=== PATIENT | female | born 1985 | race African-American/Black ===

== ENCOUNTER 2018-05-13 00:43 | Outpatient (CLI) ==
[2018-05-13 17:58] VITALS: BMI 27.7
== END 2018-05-13 01:00 | disposition short-term general hospital (02) ==
LOC: AMBL 00:43
PROVIDERS: ATTEND Internal Medicine Geriatric Medicine
DX: R07.9 Chest pain, unspecified (principal); R06.02 Shortness of breath; R60.9 Edema, unspecified; M79.605 Pain in left leg; M79.604 Pain in right leg; Z33.1 Pregnant state, incidental

== ENCOUNTER 2018-05-13 17:53 | Emergency (ER) ==
[2018-05-13 17:58] VITALS: TEMP 99.5; BMI 27.7
--- NOTE | 2018-05-13 18:37 | ED.PDOC ---
General <CHANTELLORENZOBRENDA - Last Filed: 05/13/18 22:12> Stated Complaint: CHEST PAIN Time Seen by Physician: 18:00 (SEEN WITH LORI AT ALL TIMES STATED SHE WAS SEEN AT HOSPITAL IN [facility] SHE DOES NOT RECALL THE NAME BUT DID PROVIDE A NUMBER ) Mode of Arrival: Walk-In Information Source: Patient Referred to ED by: Other (PT REFUSED HER DAUGHTER TO BE ACCOMPANIED BY SECURITY TO PROVIDE HER EARLIER D/C PAPERS FROM EARLIER HOSPITAL VISIT) Seen Within Last 72 Hours for Same Complaint By: ED (PT STATED SHE WAS SEEN IN A [facility] BUT WHEN IS ASKED HER TO PROVIDE DOCUMENTS PT STATED IT IS IN HER CAR AND DIFFICULT TO OBTAIN.) Nursing and Triage Documentation Reviewed and Agree: Yes (PT DID PROVIDE A PHONE NUMBER WITH REGARDS TO PRIOR OBTAINED CARE TODAY) Does patient meet sepsis criteria?: No (10 WEEKS ) System Inflammatory Response Syndrome: Not Applicable <SOLOMON CRAIG - Last Filed: 05/18/18 07:17> ED Provider: Dr. SOLOMON CRAIG Chief Complaint: Chest Pain Sepsis Protocol: For patient's 13 years and over: Temp is 96.8 and below OR 101 and greater Pulse >90 BPM Resp >20/minute Acutely Altered Mental Status Are patient's symptoms suggestive of a new infection, such as: -Pneumonia -Skin, Soft Tissue -Endocarditis -UTI -Bone, Joint Infection -Implantable Device -Acute Abdominal Infection -Wound Infection -Meningitis -Blood Stream Catheter Infection -Unknown Cardiovascular Complaint Exam - Chest Pain Complaint/Exam Onset: Gradual Duration: TODAY Symptoms Are: Resolved Timing: Intermittent Length of Chest Pain Episodes: ALL DAY Initial Severity: Mild Current Severity: Mild Location: Reports: Discrete Pain Radiates: Reports: None Character: Reports: Dull Aggravating: Reports: None Alleviating: Reports: None Associated Signs and Symptoms: Denies: Diaphoresis, Nausea, Vomiting, Fever, Palpitations, Cough, Hemoptysis, Back pain, Abdominal pain, Dizziness, Short of air, Calf pain, Calf swelling Related History: Reports: Similar episode Related Surgical History: Reports: None History of Healthcare-Acquired Pneumonia: Reports: No AMI/ACS Risk Factors: Reports: None <SOLOMON CRAIG - Last Filed: 05/18/18 07:17> Review of Systems - Review Of Systems Constitutional: Reports: No symptoms Eyes: Reports: No symptoms Ears, Nose, Mouth, Throat: Reports: No symptoms Respiratory: Reports: No symptoms Cardiac: Reports: Chest pain GI: Reports: No symptoms : Reports: No symptoms Musculoskeletal: Reports: Other (BILATERAL EDEMA LOWER LEGS RIGHT MORE THAN LEFT ) Skin: Reports: No symptoms Neurological: Reports: No symptoms Endocrine: Reports: No symptoms Hematologic/Lymphatic: Reports: No symptoms All Other Systems: Reviewed and Negative <SOLOMON CRAIG Filed: 05/18/18 07:17> Past Medical History - Past Medical History Previously Healthy: Yes Endocrine: Reports: None Cardiovascular: Reports: Other (AORTIC ROOT SURGERY) Respiratory: Reports: None Hematological: Reports: None Gastrointestinal: Reports: None Genitourinary: Reports: None Neuro/Psych: Reports: None Musculoskeletal: Reports: None Cancer: Reports: None Last Menstrual Period: MARCH - Surgical History General Surgical History: Reports: None - Family History Family History: Reports: None - Social History Smoking Status: Never smoker Hx Substance Use: No Alcohol Screening: None - Immunizations Tetanus Shot up to Date: No <SOLOMON CRAIG Filed: 05/18/18 07:17> Physical Exam - Physical Exam Appearance: Well-appearing, No pain distress, Well-nourished Eyes: ANNETTE, EOMI, Conjunctiva clear ENT: Ears normal, Nose normal, Oropharynx normal Respiratory: Airway patent, Breath sounds clear, Breath sounds equal, Respirations nonlabored Cardiovascular: RRR, Pulses normal, No rub, No murmur GI/: Soft, Nontender, No masses, Bowel sounds normal, No Organomegaly Musculoskeletal: Normal strength, ROM intact, No edema, No calf tenderness Skin: Warm, Dry, Normal color Neurological: Sensation intact, Motor intact, Reflexes intact, Cranial nerves intact, Alert, Oriented Psychiatric: Affect appropriate, Mood appropriate <SOLOMON CRAIG Filed: 05/18/18 07:17> Physician Notification - Case Discussed Physician Notified: dr cunningham(ob) and dr bateman([facility]) both graciosly accepted Time of Notification: 22:13 <BRENDA WRIGHT Last Filed: 05/13/18 22:12> - Case Discussed Physician Notified: CHANTEL Time of Notification: 19:00 <SOLOMON CRAIG Filed: 05/18/18 07:17> Critical Care Note - Critical Care Note Total Time (mins): 0 <SOLOMON CRAIG Filed: 05/18/18 07:17> Course - Course Hematology/Chemistry: 05/13/18 18:45 05/13/18 18:45 <BRENDA WRIGHT - Last Filed: 05/13/18 22:12> - Course Hematology/Chemistry: 05/13/18 18:45 05/13/18 18:45 <SOLOMON CRAIG - Last Filed: 05/18/18 07:17> - Course Orders, Labs, Meds: Lab Review 05/13/18 05/13/18 05/13/18 18:40 18:45 18:45 WBC 7.20 RBC 4.21 Hgb 11.5 L Hct 35.1 L MCV 83.4 MCH 27.3 MCHC 32.8 RDW Coeff of Saad 14.8 Plt Count 313 Immature Gran % (Auto) 0.4 Neut % (Auto) 58.0 Lymph % (Auto) 29.6 [place] % (Auto) 10.1 H Eos % (Auto) 1.3 Baso % (Auto) 0.6 Immature Gran # (Auto) 0.0 Neut # (Auto) 4.2 Lymph # (Auto) 2.1 [place] # (Auto) 0.7 Eos # (Auto) 0.1 Baso # (Auto) 0.0 PT 10.6 INR 1.06 APTT 29.0 D-Dimer (Manual) Sodium Potassium Chloride Carbon Dioxide Anion Gap BUN Creatinine Estimated GFR (MDRD) BUN/Creatinine Ratio Glucose Calcium Total Bilirubin AST ALT Alkaline Phosphatase Total Creatine Kinase Troponin I Total Protein Albumin Globulin Albumin/Globulin Ratio Amylase Lipase TSH Free T4 HCG, Quant Urine Color Dark Urine Clarity Slightly Urine pH 6.5 Ur Specific [place] 1.025 Urine Protein Negative Urine Glucose (UA) Negative Urine Ketones 1+ Urine Blood Negative Urine Nitrite Negative Urine Bilirubin Negative Urine Urobilinogen 4.0 Ur Leukocyte Esterase Negative Urine Test Urine Opiates Screen Ur Oxycodone Screen Urine Methadone Screen Ur Propoxyphene Screen Ur Barbiturates Screen U Tricyclic Antidepress Ur Phencyclidine Scrn Ur Amphetamine Screen U Methamphetamines Scrn U Benzodiazepines Scrn Urine Cocaine Screen U Cannabinoids Screen 05/13/18 05/13/18 05/13/18 18:45 18:45 18:48 WBC RBC Hgb Hct MCV MCH MCHC RDW Coeff of Saad Plt Count Immature Gran % (Auto) Neut % (Auto) Lymph % (Auto) [place] % (Auto) Eos % (Auto) Baso % (Auto) Immature Gran # (Auto) Neut # (Auto) Lymph # (Auto) [place] # (Auto) Eos # (Auto) Baso # (Auto) PT INR APTT D-Dimer (Manual) Sodium 134.9 L Potassium 2.79 L* Chloride 99.1 Carbon Dioxide 29.6 Anion Gap 8.99 BUN 8.4 Creatinine 0.66 Estimated GFR (MDRD) 124.00 BUN/Creatinine Ratio 12.72 Glucose 94.7 Calcium 8.88 Total Bilirubin 0.51 AST 39.9 H ALT 13.0 Alkaline Phosphatase 53.0 Total Creatine Kinase 93.5 Troponin I < 0.012 Total Protein 7.17 Albumin 3.94 Globulin 3.23 Albumin/Globulin Ratio 1.21 Amylase Lipase TSH Free T4 HCG, Quant 27958.000 Urine Color Urine Clarity Urine pH Ur Specific [place] Urine Protein Urine Glucose (UA) Urine Ketones Urine Blood Urine Nitrite Urine Bilirubin Urine Urobilinogen Ur Leukocyte Esterase Urine Test Urine Opiates Screen Negative Ur Oxycodone Screen Negative Urine Methadone Screen Negative Ur Propoxyphene Screen Negative Ur Barbiturates Screen Negative U Tricyclic Antidepress Negative Ur Phencyclidine Scrn Negative Ur Amphetamine Screen Negative U Methamphetamines Scrn Negative U Benzodiazepines Scrn Negative Urine Cocaine Screen Negative U Cannabinoids Screen Negative 05/13/18 05/13/18 05/13/18 18:48 18:51 18:51 WBC RBC Hgb Hct MCV MCH MCHC RDW Coeff of Saad Plt Count Immature Gran % (Auto) Neut % (Auto) Lymph % (Auto) [place] % (Auto) Eos % (Auto) Baso % (Auto) Immature Gran # (Auto) Neut # (Auto) Lymph # (Auto) [place] # (Auto) Eos # (Auto) Baso # (Auto) PT INR APTT D-Dimer (Manual) 836.06 Sodium Potassium Chloride Carbon Dioxide Anion Gap BUN Creatinine Estimated GFR (MDRD) BUN/Creatinine Ratio Glucose Calcium Total Bilirubin AST ALT Alkaline Phosphatase Total Creatine Kinase Troponin I Total Protein Albumin Globulin Albumin/Globulin Ratio Amylase 70.7 Lipase 13.5 L TSH Free T4 HCG, Quant Urine Color Urine Clarity Urine pH Ur Specific [place] Urine Protein Urine Glucose (UA) Urine Ketones Urine Blood Urine Nitrite Urine Bilirubin Urine Urobilinogen Ur Leukocyte Esterase Urine Test Positive Urine Opiates Screen Ur Oxycodone Screen Urine Methadone Screen Ur Propoxyphene Screen Ur Barbiturates Screen U Tricyclic Antidepress Ur Phencyclidine Scrn Ur Amphetamine Screen U Methamphetamines Scrn U Benzodiazepines Scrn Urine Cocaine Screen U Cannabinoids Screen 05/13/18 05/13/18 18:51 18:51 WBC RBC Hgb Hct MCV MCH MCHC RDW Coeff of Saad Plt Count Immature Gran % (Auto) Neut % (Auto) Lymph % (Auto) [place] % (Auto) Eos % (Auto) Baso % (Auto) Immature Gran # (Auto) Neut # (Auto) Lymph # (Auto) [place] # (Auto) Eos # (Auto) Baso # (Auto) PT INR APTT D-Dimer (Manual) Sodium Potassium Chloride Carbon Dioxide Anion Gap BUN Creatinine Estimated GFR (MDRD) BUN/Creatinine Ratio Glucose Calcium Total Bilirubin AST ALT Alkaline Phosphatase Total Creatine Kinase Troponin I Total Protein Albumin Globulin Albumin/Globulin Ratio Amylase Lipase TSH 2.820 Free T4 0.99 HCG, Quant Urine Color Urine Clarity Urine pH Ur Specific [place] Urine Protein Urine Glucose (UA) Urine Ketones Urine Blood Urine Nitrite Urine Bilirubin Urine Urobilinogen Ur Leukocyte Esterase Urine Test Urine Opiates Screen Ur Oxycodone Screen Urine Methadone Screen Ur Propoxyphene Screen Ur Barbiturates Screen U Tricyclic Antidepress Ur Phencyclidine Scrn Ur Amphetamine Screen U Methamphetamines Scrn U Benzodiazepines Scrn Urine Cocaine Screen U Cannabinoids Screen Orders Category Date Time Status EKG-(ED ONLY) Stat CARDIO 05/13/18 18:55 Completed EKG-(ED ONLY) Stat CARDIO 05/13/18 19:00 Completed TRANSFER TO OUTSIDE FACILITY .TO [facility] 05/14/18 00:15 Active ([place], [place]) TRANSFER TO OUTSIDE FACILITY .TO [facility] 05/13/18 22:14 Active ([facility], [place]) WRITE TRANSFER/SBAR NOTE ONCE CARE 05/13/18 22:14 Active WRITE TRANSFER/SBAR NOTE ONCE CARE 05/14/18 00:16 Active DISCHARGE ASSESSMENT ONCE DISCHARGE 05/13/18 22:14 Active DISCHARGE ASSESSMENT ONCE DISCHARGE 05/14/18 00:16 Active WRITE DISCHARGE NOTE ONCE DISCHARGE 05/13/18 22:14 Active WRITE DISCHARGE NOTE ONCE DISCHARGE 11/17/18 00:16 Active AMYLASE Stat LAB 05/13/18 18:51 Completed CBC W/ AUTO DIFF Stat LAB 05/13/18 18:45 Completed COMPREHENSIVE METABOLIC PANEL Stat LAB 05/13/18 18:45 Completed CREATINE KINASE Stat LAB 05/13/18 18:45 Completed D-DIMER Stat LAB 05/13/18 18:51 Completed FREE T4 (FREE THYROXINE) Stat LAB 05/13/18 18:51 Completed HCG,QUANTITATIVE Stat LAB 05/13/18 18:45 Completed LIPASE Stat LAB 05/13/18 18:51 Completed PARTIAL THROMBOPLASTIN TIME Stat LAB 05/13/18 18:45 Completed PT WITH INR Stat LAB 05/13/18 18:45 Completed TROPONIN I Stat LAB 05/13/18 18:45 Completed TSH [THYROID STIMULATING HORMONE] Stat LAB 05/13/18 18:51 Completed URINALYSIS C & S IF INDICATED Stat LAB 05/13/18 18:40 Completed URINE DRUG SCREEN (RAPID FOR ED) [DRUG SCREEN, URINE, LAB 05/13/18 18:48 Completed RAPID] Stat URINE Stat LAB 05/13/18 18:48 Completed Acetaminophen [Tylenol] MEDS 05/13/18 23:59 Discontinued 650 mg PO ONCE STA CHEST, 2 VIEWS PA & LAT Stat RADS 05/13/18 18:54 Completed Medications Discontinued Medications Generic Name Dose Route Start Last Admin Trade Name Jjq PRN Reason Stop Dose Admin Acetaminophen 650 mg 05/13/18 23:59 05/14/18 00:08 Tylenol PO 05/14/18 00:00 Not Given ONCE STA Vital Signs: Temp Pulse Resp BP Pulse Ox 05/13/18 23:12 84 16 111/65 100 05/13/18 19:07 81 20 126/90 100 05/13/18 17:54 99.5 F 109 H 18 148/108 H 99 AUBREE Risk Score: Risk Score Odds of by 30D 0 0.1 (0.1-0.2) 1 0.3 (0.2-0.3) 2 0.4 (0.3-0.5) 3 0.7 (0.6-0.9) 4 1.2 (1.0-1.5) 5 2.2 (1.9-2.6) 6 3.0 (2.5-3.6) 7 4.8 (3.8-6.1) Departure - Departure Pt referred to PMD for follow-up: No IPMP verified?: No Transfer Form Completed: Yes Disposition Discussed With: Patient, Family <CHANTELBRENDA VENTURA - Last Filed: 05/13/18 22:12> - Departure Time of Disposition: 23:30 Pt referred to PMD for follow-up: No IPMP verified?: No Transfer Form Completed: Yes Disposition Discussed With: Patient <SOLOMON CRAIG - Last Filed: 05/18/18 07:17> - Departure Disposition: TSF SHORT-TRM HOSP Discharge Problem: Hypokalemia, D-dimer, elevated Leg swelling in Qualifiers: Trimester: first trimester Qualified Code(s): O12.01 - Gestational edema, first trimester Instructions: Leg Edema (ED) Condition: Good Allergies/Adverse Reactions: Allergies Iodinated Contrast- Oral and IV Dye Adverse Reaction (Verified 05/13/18 20:15) Home Medications: Ambulatory Orders 1 [No Reported Medications] 05/13/18
[2018-05-13 18:59] LABS: URINE PREGNANCY TEST POSITIVE (NEGATIVE)
--- NOTE | 2018-05-13 19:45 | DI ---
EXAM: CHEST FRONTAL AND LATERAL VIEWS HISTORY: Chest pain. COMPARISON: None FINDINGS: Heart size and mediastinal contour within normal limits. No acute infiltrates. Normal vascularity with no pleural fluid or pneumothorax. The bony thorax has no acute finding. IMPRESSION: No acute process.
[2018-05-13 23:13] VITALS: BP 111/65
[2018-05-13] MEDS ORDERED: TYLENOL PO STA (23:59)
--- NOTE | 2018-05-14 00:12 | ED.PDOC ---
General ED Provider: Dr. BRENDA GOLDEN-ER Chief Complaint: Extremity Pain/Injury Stated Complaint: lauren been driving for a long time and my legs hurt and are swollen Time Seen by Physician: 00:10 Mode of Arrival: Walk-In Information Source: Patient Exam Limitations: No limitations Nursing and Triage Documentation Reviewed and Agree: Yes Does patient meet sepsis criteria?: No System Inflammatory Response Syndrome: Not Applicable Sepsis Protocol: For patient's 13 years and over: Temp is 96.8 and below OR 101 and greater Pulse >90 BPM Resp >20/minute Acutely Altered Mental Status Are patient's symptoms suggestive of a new infection, such as: -Pneumonia -Skin, Soft Tissue -Endocarditis -UTI -Bone, Joint Infection -Implantable Device -Acute Abdominal Infection -Wound Infection -Meningitis -Blood Stream Catheter Infection -Unknown Musculoskeletal Complaint Exam - Lower Extremity Complaint/Exam Location of Pain: Reports: Right, Left, Leg Mechanism of Injury: Reports: No known trauma Onset/Duration: today Symptoms Are: Still present Onset of Pain: Reports: Immediate Initial Severity: Mild Current Severity: Moderate Location: Reports: Diffuse Character: Reports: Dull, Aching Alleviating: Reports: None Aggravating: Reports: None Able to Bear Weight: Yes Associated Signs and Symptoms: Reports: Swelling DVT Risk Factors: Reports: Septic Arthritis Risk Factors: Reports: None Lower Extremity Findings: Present: Swelling, Tenderness NV Bundle Intact Distal to Injury: Yes Compartment Syndrome Risk Factors: Present: Pain Karoline's Sign Present: Yes Differential Diagnoses: DVT Review of Systems - Review Of Systems Constitutional: Reports: No symptoms Eyes: Reports: No symptoms Ears, Nose, Mouth, Throat: Reports: No symptoms Respiratory: Reports: No symptoms Cardiac: Reports: Chest pain (earlier today but not currently) GI: Reports: No symptoms : Reports: No symptoms Musculoskeletal: Reports: No symptoms Skin: Reports: No symptoms Neurological: Reports: No symptoms Endocrine: Reports: No symptoms Hematologic/Lymphatic: Reports: Anemia All Other Systems: Reviewed and Negative Past Medical History - Past Medical History Previously Healthy: Yes Endocrine: Reports: None Cardiovascular: Reports: Other (AORTIC ROOT SURGERY) Respiratory: Reports: None Hematological: Reports: None Gastrointestinal: Reports: None Genitourinary: Reports: None Neuro/Psych: Reports: None Musculoskeletal: Reports: None Cancer: Reports: None Last Menstrual Period: MARCH - Surgical History General Surgical History: Reports: None, Other (aortic repair) - Family History Family History: Reports: None - Social History Smoking Status: Never smoker Hx Substance Use: No Alcohol Screening: None - Immunizations Tetanus Shot up to Date: No Physical Exam - Physical Exam Appearance: Well-appearing, No pain distress, Well-nourished Pain Distress: Mild Eyes: ANNETTE ENT: Ears normal, Nose normal, Oropharynx normal Neck: Supple Respiratory: Airway patent, Breath sounds clear, Breath sounds equal, Respirations nonlabored Cardiovascular: RRR, Pulses normal, No rub, No murmur GI/: Soft Musculoskeletal: Limited ROM, Edema Skin: Warm, Dry, Normal color Neurological: Sensation intact, Motor intact, Reflexes intact, Cranial nerves intact, Alert, Oriented Psychiatric: Affect appropriate, Mood appropriate Interpretation - Radiology Interpretation Radiology Interpretation By: Radiologist Radiology Results: Negative Exam Interpreted: Portable CXR - EKG Interpretation Time of EKG #1: 00:13 Rate: Normal Rhythm: Sinus Ectopy: None [place]: NL ST Segment: Normal Interpretation: nsr Re-Evaluation - Re-Evaluation Time of Re-Evaluation: 00:16 Status: Improved Vital Signs Stable: Yes Pain Level: 2 Appearance: NAD Lungs: Clear Skin: Warm and Dry Neuro: Alert and Oriented X3 CV: RRR Physician Notification - Case Discussed Physician Notified: dr duffy--graciously accepted Time of Notification: 00:13 Critical Care Note - Critical Care Note Total Time (mins): 45 Course - Course Hematology/Chemistry: 05/13/18 18:45 05/13/18 18:45 Orders, Labs, Meds: Lab Review 05/13/18 05/13/18 05/13/18 18:40 18:45 18:45 WBC 7.20 RBC 4.21 Hgb 11.5 L Hct 35.1 L MCV 83.4 MCH 27.3 MCHC 32.8 RDW Coeff of Saad 14.8 Plt Count 313 Immature Gran % (Auto) 0.4 Neut % (Auto) 58.0 Lymph % (Auto) 29.6 [place] % (Auto) 10.1 H Eos % (Auto) 1.3 Baso % (Auto) 0.6 Immature Gran # (Auto) 0.0 Neut # (Auto) 4.2 Lymph # (Auto) 2.1 [place] # (Auto) 0.7 Eos # (Auto) 0.1 Baso # (Auto) 0.0 PT 10.6 INR 1.06 APTT 29.0 D-Dimer (Manual) Sodium Potassium Chloride Carbon Dioxide Anion Gap BUN Creatinine Estimated GFR (MDRD) BUN/Creatinine Ratio Glucose Calcium Total Bilirubin AST ALT Alkaline Phosphatase Total Creatine Kinase Troponin I Total Protein Albumin Globulin Albumin/Globulin Ratio Amylase Lipase TSH Free T4 HCG, Quant Urine Color Dark Urine Clarity Slightly Urine pH 6.5 Ur Specific [place] 1.025 Urine Protein Negative Urine Glucose (UA) Negative Urine Ketones 1+ Urine Blood Negative Urine Nitrite Negative Urine Bilirubin Negative Urine Urobilinogen 4.0 Ur Leukocyte Esterase Negative Urine Test Urine Opiates Screen Ur Oxycodone Screen Urine Methadone Screen Ur Propoxyphene Screen Ur Barbiturates Screen U Tricyclic Antidepress Ur Phencyclidine Scrn Ur Amphetamine Screen U Methamphetamines Scrn U Benzodiazepines Scrn Urine Cocaine Screen U Cannabinoids Screen 05/13/18 05/13/18 05/13/18 18:45 18:45 18:48 WBC RBC Hgb Hct MCV MCH MCHC RDW Coeff of Saad Plt Count Immature Gran % (Auto) Neut % (Auto) Lymph % (Auto) [place] % (Auto) Eos % (Auto) Baso % (Auto) Immature Gran # (Auto) Neut # (Auto) Lymph # (Auto) [place] # (Auto) Eos # (Auto) Baso # (Auto) PT INR APTT D-Dimer (Manual) Sodium 134.9 L Potassium 2.79 L* Chloride 99.1 Carbon Dioxide 29.6 Anion Gap 8.99 BUN 8.4 Creatinine 0.66 Estimated GFR (MDRD) 124.00 BUN/Creatinine Ratio 12.72 Glucose 94.7 Calcium 8.88 Total Bilirubin 0.51 AST 39.9 H ALT 13.0 Alkaline Phosphatase 53.0 Total Creatine Kinase 93.5 Troponin I < 0.012 Total Protein 7.17 Albumin 3.94 Globulin 3.23 Albumin/Globulin Ratio 1.21 Amylase Lipase TSH Free T4 HCG, Quant 00032.000 Urine Color Urine Clarity Urine pH Ur Specific [place] Urine Protein Urine Glucose (UA) Urine Ketones Urine Blood Urine Nitrite Urine Bilirubin Urine Urobilinogen Ur Leukocyte Esterase Urine Test Urine Opiates Screen Negative Ur Oxycodone Screen Negative Urine Methadone Screen Negative Ur Propoxyphene Screen Negative Ur Barbiturates Screen Negative U Tricyclic Antidepress Negative Ur Phencyclidine Scrn Negative Ur Amphetamine Screen Negative U Methamphetamines Scrn Negative U Benzodiazepines Scrn Negative Urine Cocaine Screen Negative U Cannabinoids Screen Negative 05/13/18 05/13/18 05/13/18 18:48 18:51 18:51 WBC RBC Hgb Hct MCV MCH MCHC RDW Coeff of Saad Plt Count Immature Gran % (Auto) Neut % (Auto) Lymph % (Auto) [place] % (Auto) Eos % (Auto) Baso % (Auto) Immature Gran # (Auto) Neut # (Auto) Lymph # (Auto) [place] # (Auto) Eos # (Auto) Baso # (Auto) PT INR APTT D-Dimer (Manual) 836.06 Sodium Potassium Chloride Carbon Dioxide Anion Gap BUN Creatinine Estimated GFR (MDRD) BUN/Creatinine Ratio Glucose Calcium Total Bilirubin AST ALT Alkaline Phosphatase Total Creatine Kinase Troponin I Total Protein Albumin Globulin Albumin/Globulin Ratio Amylase 70.7 Lipase 13.5 L TSH Free T4 HCG, Quant Urine Color Urine Clarity Urine pH Ur Specific [place] Urine Protein Urine Glucose (UA) Urine Ketones Urine Blood Urine Nitrite Urine Bilirubin Urine Urobilinogen Ur Leukocyte Esterase Urine Test Positive Urine Opiates Screen Ur Oxycodone Screen Urine Methadone Screen Ur Propoxyphene Screen Ur Barbiturates Screen U Tricyclic Antidepress Ur Phencyclidine Scrn Ur Amphetamine Screen U Methamphetamines Scrn U Benzodiazepines Scrn Urine Cocaine Screen U Cannabinoids Screen 05/13/18 05/13/18 18:51 18:51 WBC RBC Hgb Hct MCV MCH MCHC RDW Coeff of Saad Plt Count Immature Gran % (Auto) Neut % (Auto) Lymph % (Auto) [place] % (Auto) Eos % (Auto) Baso % (Auto) Immature Gran # (Auto) Neut # (Auto) Lymph # (Auto) [place] # (Auto) Eos # (Auto) Baso # (Auto) PT INR APTT D-Dimer (Manual) Sodium Potassium Chloride Carbon Dioxide Anion Gap BUN Creatinine Estimated GFR (MDRD) BUN/Creatinine Ratio Glucose Calcium Total Bilirubin AST ALT Alkaline Phosphatase Total Creatine Kinase Troponin I Total Protein Albumin Globulin Albumin/Globulin Ratio Amylase Lipase TSH 2.820 Free T4 0.99 HCG, Quant Urine Color Urine Clarity Urine pH Ur Specific [place] Urine Protein Urine Glucose (UA) Urine Ketones Urine Blood Urine Nitrite Urine Bilirubin Urine Urobilinogen Ur Leukocyte Esterase Urine Test Urine Opiates Screen Ur Oxycodone Screen Urine Methadone Screen Ur Propoxyphene Screen Ur Barbiturates Screen U Tricyclic Antidepress Ur Phencyclidine Scrn Ur Amphetamine Screen U Methamphetamines Scrn U Benzodiazepines Scrn Urine Cocaine Screen U Cannabinoids Screen Orders Category Date Time Status EKG-(ED ONLY) Stat CARDIO 05/13/18 18:55 Completed EKG-(ED ONLY) Stat CARDIO 05/13/18 19:00 Completed TRANSFER TO OUTSIDE FACILITY .TO [facility] 05/14/18 00:15 Active ([place], [place]) TRANSFER TO OUTSIDE FACILITY .TO [facility] 05/13/18 22:14 Active ([place], [place]) WRITE TRANSFER/SB[facility] NOTE ONCE CARE 05/13/18 22:14 Active WRITE TRANSFER/[facility] NOTE ONCE CARE 05/14/18 00:16 Active DISCHARGE ASSESSMENT ONCE DISCHARGE 05/13/18 22:14 Active DISCHARGE ASSESSMENT ONCE DISCHARGE 05/14/18 00:16 Active WRITE DISCHARGE NOTE ONCE DISCHARGE 05/13/18 22:14 Active WRITE DISCHARGE NOTE ONCE DISCHARGE 05/14/18 00:16 Active AMYLASE Stat LAB 05/13/18 18:51 Completed CBC W/ AUTO DIFF Stat LAB 05/13/18 18:45 Completed COMPREHENSIVE METABOLIC PANEL Stat LAB 05/13/18 18:45 Completed CREATINE KINASE Stat LAB 05/13/18 18:45 Completed D-DIMER Stat LAB 05/13/18 18:51 Completed FREE T4 (FREE THYROXINE) Stat LAB 05/13/18 18:51 Completed HCG,QUANTITATIVE Stat LAB 05/13/18 18:45 Completed LIPASE Stat LAB 05/13/18 18:51 Completed PARTIAL THROMBOPLASTIN TIME Stat LAB 05/13/18 18:45 Completed PT WITH INR Stat LAB 05/13/18 18:45 Completed TROPONIN I Stat LAB 05/13/18 18:45 Completed TSH [THYROID STIMULATING HORMONE] Stat LAB 05/13/18 18:51 Completed URINALYSIS C & S IF INDICATED Stat LAB 05/13/18 18:40 Completed URINE DRUG SCREEN (RAPID FOR ED) [DRUG SCREEN, URINE, LAB 05/13/18 18:48 Completed RAPID] Stat URINE Stat LAB 05/13/18 18:48 Completed Acetaminophen [Tylenol] MEDS 05/13/18 23:59 Discontinued 650 mg PO ONCE STA CHEST, 2 VIEWS PA & LAT Stat RADS 05/13/18 18:54 Completed Medications Discontinued Medications Generic Name Dose Route Start Last Admin Trade Name Freq PRN Reason Stop Dose Admin Acetaminophen 650 mg 05/13/18 23:59 05/14/18 00:08 Tylenol PO 05/14/18 00:00 Not Given ONCE STA When i gave report to dr duffy--i did report the patient had chest pain earlier today but not since she has been in my care) Vital Signs: Temp Pulse Resp BP Pulse Ox 05/13/18 23:12 84 16 111/65 100 05/13/18 19:07 81 20 126/90 100 05/13/18 17:54 99.5 F 109 H 18 148/108 H 99 Departure - Departure Time of Disposition: 00:13 Disposition: TSF SHORT-TRM HOSP Discharge Problem: Hypokalemia, D-dimer, elevated Leg swelling in Qualifiers: Trimester: first trimester Qualified Code(s): O12.01 - Gestational edema, first trimester Instructions: Leg Edema (ED) Condition: Good Pt referred to PMD for follow-up: No IPMP verified?: No Allergies/Adverse Reactions: Allergies Iodinated Contrast- Oral and IV Dye Adverse Reaction (Verified 05/13/18 20:15) Home Medications: Ambulatory Orders 1 [No Reported Medications] 05/13/18 Transfer Form Completed: Yes Disposition Discussed With: Patient, Family
== END 2018-05-14 00:39 | disposition short-term general hospital (02) ==
LOC: ED 17:53
DX: O12.01 Gestational edema, first trimester (principal); R79.1 Abnormal coagulation profile; E87.6 Hypokalemia; M79.605 Pain in left leg; M79.604 Pain in right leg; R07.9 Chest pain, unspecified
CPT/HCPCS: 36415; 80053; 80306; 81001; 81025; 82150; 82550; 83690; 84439; 84443; 84484; 84702; 85025; 85379; 85610; 85730; 93005; 93010; 99285